=== PATIENT | male | born 1960 | race Caucasian/White ===

== ENCOUNTER → 2017-04-03 | Outpatient (CLI) | payer BC ==
[~2017-04-03] MED LIST: REGADENOSON 0.4 MG/5 ML SYRINGE IV ONE
--- NOTE | 2017-04-03 12:32 | EST ---
DATE OF SERVICE: 04/03/2017 AGE: 56Y SEX: M HT: 6' WT: 305 lbs. Lexiscan Cardiolite Stress Test *Heart Rate Blood Pressure *Rest: 82 Rest: 137/90 * *Max. Achieved: 104 Maximum BP: 143/85 85% PMHR: 140 100% PMHR: 165 *METS: - INDICATIONS: Abnormal EKG. MEDICATIONS: - Baseline EKG revealed atrial fibrillation with a controlled ventricular rate, isolated PVCs, nonspecific ST-T changes. With Lexiscan administration, heart rate changed from 82 to about 94 beats per minute, blood pressure was 137/90 and changed to 143/85. EKG remained inconclusive. Patient did not have symptoms with Lexiscan administration. IMPRESSION: 1. By EKG criteria, this is an inconclusive Lexiscan stress test resting EKG changes. 2. The nuclear scan results, which are more pertinent, will be reported by the radiologist.
--- NOTE | 2017-04-03 13:36 | NM ---
EXAMINATION TYPE: NM stress lexiscan cardiolite DATE OF EXAM: 04/03/2017 1:00 PM COMPARISON: Prior exam 11 November 2013 HISTORY: Coronary artery disease, I 50.9 TECHNIQUE: After the intravenous administration of 11 mCi Tc 99m Sestamibi - Cardiolite resting SPEC T images acquired 45 minutes post injection. The patient received 0.4mg Lexiscan, 26.7 mCi Tc 99m Sestamibi - Stress images obtained [address] injection FINDINGS: Review of stress and rest SPECT images demonstrates no distinct perfusion abnormality. Gated analysi s shows normal wall motion with an estimated left ventricular ejection fraction of 41 %. IMPRESSION: No scintigraphic evidence for reversible ischemia. Ejection fraction approximately 41%
== END | disposition home or self-care (01) ==
LOC: RADNMMAIN 08:58
PROVIDERS: ATTEND Family Medicine
DX: I25.10 Atherosclerotic heart disease of native coronary artery without angina pectoris (principal)
CPT/HCPCS: 93017; 78452; A9500; J2785

== ENCOUNTER → 2019-12-03 | Outpatient (CLI) | payer BC ==
--- NOTE | 2019-12-03 11:45 | EST ---
EXERCISE STRESS DATE OF SERVICE: 12/03/2019 AGE: 59 SEX: Male HT: 72" WT: 320 pounds PROTOCOL: Lexiscan Cardiolite STAGE: DURATION OF EXERCISE: HEART RATE REST: 91 BLOOD PRESSURE REST: 185/102 MAXIMUM HEART RATE ACHIEVED: 109 MAXIMUM BLOOD PRESSURE: 185/102 85% MPHR: 100% MPHR: METS: INDICATIONS: Abnormal EKG. CLINICAL INFORMATION: Baseline rhythm is atrial fibrillation, rate of 91, normal axis and intervals, rare PVCs nonspecific ST-T wave changes. Baseline blood pressure 185/102 mmHg. Patient received injection of Lexiscan. Electrocardiograph monitoring revealed no evidence of diagnostic ischemic ST deviation. Cardiolite was injected per protocol. CONCLUSION: 1. Nondiagnostic electrocardiograph stress testing. 2. Nuclear images will be reported separately. MMODL / IJN: [id number] /
--- NOTE | 2019-12-03 12:35 | NM ---
"EXAMINATION TYPE: NM stress lexiscan cardiolite DATE OF EXAM: 12/03/2019 COMPARISON: NONE HISTORY: Chest pain TECHNIQUE: After the intravenous administration of 10.2 mCi Tc 99m Sestamibi - Cardiolite resting SP ECT images acquired 55 minutes post injection. The patient received 0.4mg Lexiscan, 25.4 mCi Tc 99m Sestamibi - Stress images obtained [address] injection FINDINGS: Review of stress and rest SPECT images demonstrates congestion and small reversible perfusion defect involving the apical lateral portion myocardium. Report called to physician's office. Gated analysis shows induced wall motion with an estimated left ventricular ejection fraction of 34 %. IMPRESSION: 1. There is reduced wall motion activity within ejection fraction of only 34% correlate for LV dysfun ction. 2. Small focal area of reversible ischemia involving the lateral wall suggestive correlate clinically . A [place] level critical message alert has been initiated for Darrel Knutson MD via the [place] [facility] 0 | Critical Results System on 12/03/2019 12:32 PM. This message alert has been sent to Darrel Knutson MD via the preferences provided by the clinician for the receipt of Radiology Critical Findings. [facility] ID [id number]."
== END | disposition home or self-care (01) ==
LOC: RADNMMAIN 07:47
PROVIDERS: ATTEND Family Medicine
DX: I50.9 Heart failure, unspecified (principal)
CPT/HCPCS: 93017; 78452; A9500; J2785